=== PATIENT | female | born 1995 | race African-American/Black ===

== ENCOUNTER → 2021-10-26 | Day surgery (SDC) | payer BC ==
[~2021-10-26] VITALS: Ht 154.9 cm; Wt 140.0 kg
[~2021-10-26] MED LIST: ALBU2.5V8 IH; IV RINGERS,LACTATED 1000ML 1,000 ML IV SCH; LIDOCAINE 2% PF 5 ML VIAL. ONE; PROPOFOL 10 MG/ML (20ML) VIAL. IV ONE
[2021-10-26 11:10] VITALS: BP 147/76
--- NOTE | 2021-10-26 11:30 | PREOP HP ---
DATE OF SERVICE: 10/26/2021 DATE OF PROCEDURE: 10/26/2021. REQUESTING PHYSICIAN: Alex Snell MD. PRIMARY CARE PHYSICIAN: Alex Snell MD. REASON FOR PROCEDURE: Anemia and change in bowels. HISTORY OF PRESENT ILLNESS: This is a 26-year-old female who presents for anemia and change in bowels. ALLERGIES: No known drug allergies. PAST MEDICAL HISTORY: Significant for iron deficiency anemia. FAMILY MEDICAL HISTORY: Colon cancer. MEDICATIONS: MAR reviewed. PHYSICAL EXAMINATION: VITAL SIGNS: She is afebrile and vital signs are stable. GENERAL: She is an obese -[place] female in no apparent distress. HEENT: Oropharynx is clear. CARDIOVASCULAR: S1, S2. LUNGS: Clear. ABDOMEN: Active bowel sounds, soft, nontender, nondistended. EXTREMITIES: No edema. NEUROLOGIC: Awake, alert and oriented x 3. ASSESSMENT AND PLAN: 1. Iron deficiency anemia. 2. Abdominal pain. 3. Family history of colon cancer. 4. Change in bowels. The risks and benefits of the upper and lower endoscopy have been explained and she has agreed to proceed. LISA HARDIN: Shannon TID: [id number]
--- NOTE | 2021-10-27 16:09 | PATHOLOGY ---
[facility] Accession Number: [id number] . 01 Material submitted: . PART A: small bowel - SMALL BOWEL BIOPSY PART B: gastrointestinal site - GASTRIC ANTRUM AND BODY PART C: esophagus - DISTAL ESOPHAGUS BIOPSY. Modifiers: distal PART D: rectum - RECTAL POLYP . 01 Clinical history: . ANEMIA EGD/COLONOSCOPY . 02 Diagnosis: A. Small bowel biopsy: - No diagnostic abnormalities. . B. Gastric biopsy, gastric antrum and body: - Chronic gastritis, mild. . C. Esophageal biopsies, distal esophagus: - Reflux changes. . D. Colorectal biopsy, rectal polyp: - Hyperplastic polyp. (JPM:brittany; 10/27/2021) [facility] 10/27/2021 1211 Local . 02 Comment: Sections of the small bowel biopsy reveal segments of duodenal and small intestine mucosa. Where best oriented, the mucosal villi show no sprue-like changes or significant inflammatory changes. . Sections of the gastric biopsy reveal segments of gastric body and gastric antral mucosa. The gastric body mucosa shows superficial congestion and slight chronic inflammation. The antral mucosa shows mild chronic inflammation. A properly controlled immunoperoxidase for Helicobacter is negative for Helicobacter organisms. . Sections of the distal esophageal biopsy reveal several segments of hyperplastic squamous esophageal mucosa, in addition to several segments of gastric mucosa showing mild chronic inflammation. The findings are consistent with reflux changes. There is no evidence of Porras's change, dysplasia, or malignancy. . Sections of the rectal biopsy reveal a hyperplastic polyp containing a mucosal-associated lymphoid aggregate. There are no adenomatous changes or evidence of malignancy. (JPM:brittany; 10/27/2021) . Special stain performed: Immunoperoxidase for Helicobacter on B1. . 02 Electronically signed: . Torin Alejo MD, Pathologist NPI- [id number] . 01 Gross description: . A. The specimen is received in formalin, labeled "Hayter, Yamil, small bowel BX". Received are 5 segments of pale peterson tissue ranging in size from 0.2-0.3 cm in maximum dimensions. The specimen is entirely submitted in cassette A1. . B. The specimen is received in formalin, labeled "Hayter, Yamil, gastric antrum and body BX". Received are 4 segments of pale peterson tissue ranging in size from 0.3-0.6 cm in maximum dimensions. The specimen is entirely submitted in cassette B1. . C. The specimen is received in formalin, labeled "Hayter, Yamil, distal esophagus BX". Received are 4 segments of pale peterson tissue ranging in size from 0.2-0.8 cm in maximum dimensions. The specimen is entirely submitted in cassette C1. . D. The specimen is received in formalin, labeled "Hayter, Yamil, rectal polyp". Received is a single segment of pale peterson tissue measuring 0.3 cm in maximum dimensions. The specimen is entirely submitted in cassette D1. ([facility]; 10/26/2021) NRI/NRI 10/26/[address] [place] [address] . Pathologist provided ICD-10: K29.50, K62.1, D64.9 . 02 CPT . 776651, 686929, 273624, [id number], [id number] Specimen Comment: A courtesy copy of this report has been sent to [phone], [phone] Specimen Comment: [id number] Specimen Comment: Report sent to / DR BEE Specimen Comment: A duplicate report has been generated due to demographic updates. Performed at: 01 [facility] [address] [facility] [address], [place] [id number] MD Ajith Blackwell MD Phone: [phone] Performed at: 02 [facility] [address] [place], [place] [id number] MD Torin Alejo MD Phone: [phone]
== END | disposition home or self-care (01) ==
LOC: ENDOS 09:16
PROVIDERS: ATTEND Internal Medicine Gastroenterology
DX: D50.9 Iron deficiency anemia, unspecified (principal); K29.50 Unspecified chronic gastritis without bleeding; K62.1 Rectal polyp; K64.0 First degree hemorrhoids; K21.00 Gastro-esophageal reflux disease with esophagitis, without bleeding; K63.89 Other specified diseases of intestine; K31.89 Other diseases of stomach and duodenum; J45.909 Unspecified asthma, uncomplicated; F41.9 Anxiety disorder, unspecified; Z79.899 Other long term (current) drug therapy; Z98.890 Other specified postprocedural states; Z80.0 Family history of malignant neoplasm of digestive organs
CPT/HCPCS: 43239; 45380; 81025; J2704; 88305; 88342